=== PATIENT | female | born 1970 | race Caucasian/White ===

== ENCOUNTER 2018-07-21 01:07 | Emergency (ER) | payer OTHER ==
[2018-07-21] MEDS ORDERED: HYDROcodone/Acetaminophen 5/325 mg Tablet ONE (02:15)
--- NOTE | 2018-07-21 08:01 | RAD ---
RIGHT ANKLE 3 VIEWS: Date: 07/21/18 HISTORY: Right ankle pain. FINDINGS/IMPRESSION: The ankle mortise is maintained. No fracture or dislocation is seen. POS: ROSALINO
--- NOTE | 2018-07-21 08:04 | RAD ---
RIGHT FOOT 3 VIEWS: HISTORY: Right foot pain. FINDINGS: No fracture, dislocation, or bony destruction is seen. Mild hallux valgus deformity is noted. POS: ANNABELLA
== END 2018-07-21 02:45 | disposition home or self-care (01) ==
LOC: ERS 01:07
DX: S93.401A Sprain of unspecified ligament of right ankle, initial encounter (principal); S93.601A Unspecified sprain of right foot, initial encounter; I10 Essential (primary) hypertension; Z87.442 Personal history of urinary calculi; W22.09XA Striking against other stationary object, initial encounter

== ENCOUNTER 2019-02-22 09:03 | Day surgery (SDC) | payer OTHER ==
[2019-02-22 10:08] LABS: #Eosinphils 0.1 thou/uL (0.0-0.7); #Lymphocytes 1.6 thou/uL (1.20-3.40); #Monocytes 0.7 thou/uL (0.11-0.59); #Neutrophils 9.9 thou/uL (1.40-6.50); %Basophils 0.1 % (0.0-1.0); %Eosinophils 0.4 % (0.0-10.0); %Lymphocytes 13.2 % (21.0-51.0); %Monocytes 5.6 % (0.0-10.0); %Neutrophils 80.7 % (42.0-75.0); Hemoglobin 14.1 g/dL (12.0-16.0); Mean Corpuscular HGB CONC 33.5 g/dL (32.0-36.0); Mean Corpuscular Hemoglobin 28.2 pg (27.0-31.0); Mean Corpuscular Volume 84.1 fL (78.0-98.0); Mean Platelet Volume 8.3 fL (7.4-10.4); Platelet Count 237 thou/uL (130-400); RBC Distribution Width 11.9 % (11.5-14.5); Red Blood Cell (RBC) Count 5.01 mill/uL (4.20-5.40); White Blood Cell (WBC) Count 12.3 thou/uL (4.8-10.8)
[2019-02-22 10:28] LABS: ALT (SGPT) 16 U/L (8-55); AST (SGOT) 14 U/L (5-34); Albumin 4.4 g/dL (3.5-5.0); Alkaline Phosphatase 120 U/L (40-150); Anion Gap 14 mmol/L (10-20); BUN (Urea Nitrogen) 9 mg/dL (7.0-18.7); Bilirubin, Total 0.7 mg/dL (0.2-1.2); Calc. Creatinine Clearance 0 mL/min (70-130); Calcium 10.1 mg/dL (7.8-10.44); Carbon Dioxide 26 mmol/L (22-29); Chloride 104 mmol/L (98-107); Estimated GFR-MDRD 78; Globulin 3.3 g/dL (2.4-3.5); Glucose 104 mg/dL (70-105); Lipase 26 U/L (8-78); Protein, Total 7.7 g/dL (6.0-8.3); Sodium 140 mmol/L (136-145)
[2019-02-22 11:07] LABS: Bilirubin Negative (Negative); Blood, Urine Moderate (Negative); Clarity CLEAR (Clear); Glucose, Urine (Dipstick) Negative (Negative); Leukocyte Negative (Negative); Nitrite Negative (Negative); Protein, Urine (Dipstick) Trace mg/dL (Neg-Trace); Specific Gravity, Urine 1.024 (1.002-1.036); Urobilinogen 0.2 mg/dL (0.2-1.0); pH, Urine 5.5 (5.0-9.0)
[2019-02-22 11:14] LABS: Bacteria/HPF None Seen HPF (None Seen); Hyaline Casts/LPF 0-3 HYALINE CAST LPF (0-3 Hyaline); Pathc Cast-AUWi Flag 0.67 (0-2.49); Squamous Epithelial 0-3 HPF (0-3); WBC/HPF 0-3 HPF (0-3)
[2019-02-22 11:21] LABS: Pregnancy Test - Urine (BHCG) Negative (Negative); Pregu Control Background? CLEAR/WHITE (CLR/WHITE); Pregu Control Bar Appear? YES (CONTROL BAR); Specific Gravity 1.024 (1.002-1.036)
[2019-02-22] MEDS ORDERED: ISOVUE-370 76%-LOCM 1 ML ONE (11:44)
[2019-02-22] MEDS ORDERED: Ondansetron PF 4 MG/2 ML Vial ONE ×2 (12:24→15:24)
[2019-02-22] MEDS ORDERED: Piperacillin/Tazobactam 4.5 GM VIAL ONE (12:24)
[2019-02-22] MEDS ORDERED: Morphine 4 MG/ML VIAL ONE (12:24)
--- NOTE | 2019-02-22 12:34 | CT ---
EXAM: CT ABDOMEN AND PELVIS HISTORY: Right lower quadrant pain, times a couple days COMPARISON: None. Procedure: Multiple contiguous axial images were obtained and a CT of the abdomen and pelvis with IV contrast. C oronal reformats were performed. FINDINGS: Lower Chest: Minimal dependent atelectatic Vessels: Normal caliber aorta. Abdomen: Portal vein:Patent Gallbladder: Surgically absent Liver: within normal limits. Pancreas: within normal limits. Spleen: within normal limits. Adrenals: within normal limits. Kidneys: within normal limits. Peritoneum: No free air. Small amount of free fluid in the right pericolic gutter. Bowel: Dilatation of the mid to distal aspect of the appendix with punctate densities likely represen ting appendicoliths. There is periappendiceal fluid and fat stranding. Appendix is approximately 9 mm in diameter. No evidence of abscess or perforation Mesentery and Retroperitoneum: No enlarged mesenteric or retroperitoneal lymph nodes. Abdominal Wall: within normal limits. Pelvis: Reproductive Organs: No pelvic masses. Pelvis there is small amount of free fluid in the pelvis. Bladder: within normal limits. Bones: within normal limits. IMPRESSION: Appendicitis without evidence of perforation or abscess. Results of study discussed with Dr. Man 02/22/2019 at 12:16 PM Code CR
--- NOTE | 2019-02-22 13:30 | HP ---
ATTENDING SURGEON: Dr. Scott. HISTORY OF PRESENT ILLNESS: The patient is a 48-year-old woman, who was presented to the ER after 2 days of increasing right lower quadrant pain. The patient states she had chills. No documented fevers. Denied vomiting or diarrhea, but did have some nausea. The patient underwent evaluation and examination to include a CT scan of her abdomen and pelvis, which showed acute appendicitis at which time we were asked to evaluate the patient for surgical intervention. ALLERGIES: NONE. CURRENT MEDICATIONS: Hydrochlorothiazide. PAST MEDICAL HISTORY: Hypertension, cervical cancer treated with chemo in 2007 and 2008, history of kidney stones. PAST SURGICAL HISTORY: Cholecystectomy in 2016. Tubal in 1997. FAMILY MEDICAL HISTORY: Diabetes. SOCIAL HISTORY: The patient drinks 1 to 2 drinks per week. Denies drug or tobacco use. She is employed as a software engineering specialist. REVIEW OF SYSTEMS: A 10-point review of systems is negative as otherwise stated. PHYSICAL EXAMINATION: VITAL SIGNS: Blood pressure 165/101, heart rate 74, respirations 17 oxygen saturation 99% on room air, and temperature 97.5. GENERAL: The patient is resting comfortably in bed. She is awake, alert, and oriented x3. HEENT: Head is normocephalic atraumatic. Eyes, extraocular motion intact. PERRLA bilaterally. Ears are atraumatic without discharge. Nose is atraumatic without discharge. Oropharynx is clear. NECK: Nontender. Trachea is midline. No JVD. No lymphadenopathy is noted. LUNGS: Clear to auscultation with good inspiratory and expiratory effort. HEART: Regular rate and rhythm. ABDOMEN: Soft with tenderness to the right lower quadrant. Positive rebound. Positive Rovsing's. PELVIS: Stable. EXTREMITIES: Neurovascularly intact x4. BACK: Atraumatic and nontender. No CVA tenderness. LABORATORY FINDINGS: White blood cell count 12.3, hemoglobin 14.1, hematocrit 42.1, platelets 237. Sodium 140, potassium 4.0, chloride 104, CO2 of 26, BUN 9, creatinine 0.79, glucose 104. Urinalysis is significant only for 7 to 10 rbc's. There is no bacteria, LE, or nitrite. RADIOGRAPHIC FINDINGS: CT of the abdomen and pelvis with IV contrast, shows an appendicitis without evidence of perforation or abscess. ASSESSMENT: Acute appendicitis. PLAN: Will be to keep the patient n.p.o., which she has been since last night. We will be able to perform her surgery today. Dr. Scott has examined her and obtained informed consent from her to undergo laparoscopic appendectomy with other procedures as needed. The patient will be moved to day stay, and then has the possibility of being discharged home tonight. Job ID: [id number]
[2019-02-22] MEDS ORDERED: cefOXitin 2 GM VIAL ONE (14:48)
[2019-02-22] MEDS ORDERED: Sodium Chloride 0.9% 100 ML ONE (14:49)
[2019-02-22] MEDS ORDERED: Fentanyl 100 MCG/2 ML VIAL ONE ×2 (14:54→15:42)
[2019-02-22] MEDS ORDERED: Midazolam HCl 2 mg/2 ml Vial ONE (14:54)
[2019-02-22] MEDS ORDERED: Bupivacaine/Epinephrine 0.25% 30 ML VIAL ONE (14:57)
[2019-02-22] MEDS ORDERED: Famotidine/PF 20 mg/2ml Vial ONE (15:05)
[2019-02-22] MEDS ORDERED: Glycopyrrolate 0.2 MG/ML 5 ML SYRINGE ONE (15:24)
[2019-02-22] MEDS ORDERED: PROPOFOL 200 MG/20 ML VIAL ONE (15:24)
[2019-02-22] MEDS ORDERED: Rocuronium Bromide 10 MG/ML (10ML VIAL) ONE (15:24)
[2019-02-22] MEDS ORDERED: Lidocaine 1% PF 5 ML VIAL ONE (15:24)
[2019-02-22] MEDS ORDERED: Dexamethasone 20 MG/5 ML VIAL ONE (15:24)
[2019-02-22] MEDS ORDERED: Succinylcholine Chloride 20 MG/ML 10 ml SYRINGE FS ONE (15:24)
[2019-02-22] MEDS ORDERED: Ketorolac Tromethamine 30 MG/ML VIAL ONE (15:24)
--- NOTE | 2019-02-22 22:58 | OP ---
DATE OF PROCEDURE: 02/22/2019 PREOPERATIVE DIAGNOSIS: Acute appendicitis. POSTOPERATIVE DIAGNOSIS: Acute appendicitis. OPERATION PERFORMED: Laparoscopic appendectomy. ANESTHESIA: General endotracheal. ESTIMATED BLOOD LOSS: 10 mL. FLUIDS GIVEN: 1200 mL crystalloids. COUNTS: Sponge and instrument counts were verified as correct x2. COMPLICATIONS: None apparent at the time of operation. INDICATIONS FOR OPERATION: This is a 48-year-old woman, presented with 2-day history of right lower quadrant abdominal pain. Clinical radiographic examination was consistent with acute appendicitis for which the patient was brought to the operating room for appendectomy. Findings are consistent with suppurative appendix. There is foul-smelling free fluid associated with this. DESCRIPTION OF OPERATION: Informed consent obtained from the patient, she was brought to the operating room, placed in supine position. Following general anesthesia, the abdomen was sterilely prepped and draped in usual fashion. The skin below the umbilicus was infiltrated with 0.25% Marcaine with epinephrine. A small curvilinear infraumbilical incision was made using 11 scalpel. Umbilical stalk was grasped with Kiran and elevated. A Veress needle was inserted through the incision and placed in peritoneal cavity through which the abdomen was insufflated with 3 L of CO2 gas. Intraabdominal pressure was noted at 2 mmHg. Following abdominal insufflation, the Veress needle was removed and a 5-mm trocar introduced using a Visiport under laparoscopy. Laparoscopy confirmed proper placement of the port, no injuries to underlying structures. Additional laparoscopy reveals the right lower quadrant completely obscured by omental adhesions. Under direct laparoscopy, two 5 mm left lower quadrant and suprapubic ports were placed after the overlying skin were infiltrated with 0.25% Marcaine with epinephrine and appropriate incision was made. The patient was placed in a Trendelenburg position, rotated to her left. I introduced a Prestige grasper through the left lower quadrant port site, using this to bluntly take down omental adhesions to expose a dilated suppurative appendix. The Endo Ashok forceps was introduced through the suprapubic port site grasping the appendix, which was elevated. I used a [place] dissector to create a rent through the mesoappendix at the base. Using the LigaSure device, the mesoappendix was divided down to the base serially with good hemostasis. The appendix itself was divided at the appendiceal-cecal junction between endo-loops. The appendix was delivered off the abdominal cavity using an EndoCatch. Operative site was inspected for good hemostasis. The foul smelling pelvic fluid was evacuated using suction. The pelvic cavity was irrigated with saline and evacuated. Finding no other pathology, laparoscopy was terminated. Fascia of the left lower quadrant port was closed using 0 Vicryl suture and Endo Close device under laparoscopy. The abdomen was desufflated. All ports and instruments were removed and accounted for. Skin incisions closed using 4-0 Monocryl suture in subcuticular fashion. Dermabond was applied over incisional closure. The patient tolerated the operation without any apparent complication and was returned to recovery room in satisfactory condition. Job ID: [id number]
== END 2019-02-22 18:23 | disposition home or self-care (01) ==
LOC: ERS 09:03
PROVIDERS: ATTEND Surgery
PROC: 0DTJ4ZZ Resection of Appendix, Percutaneous Endoscopic Approach (ICD-10-PCS; principal; 2019-02-22)
DX: K35.30 Acute appendicitis with localized peritonitis, without perforation or gangrene (principal); I10 Essential (primary) hypertension; Z85.41 Personal history of malignant neoplasm of cervix uteri; Z79.899 Other long term (current) drug therapy
CPT/HCPCS: 36415; 74177; 80053; 81003; 81015; 81025; 83690; 85025; 88304; 96361; 96374; 96375; J0131; J0694; J1100; J1885; J2001; J2250; J2270; J2405; J2543; J2704; J3010; J3490; Q9966; S0028